=== PATIENT | male | born 1970 | race Caucasian/White ===

== ENCOUNTER → 2021-10-05 | Outpatient (CLI) | payer OTHER ==
[~2021-10-05] MED LIST: BUSPIRONE HCL7.5 MG PO; ELIQUIS2.5 MG PO; HYDROXYZINE HCL25 MG PO; PERCOCET 10-321 EACH PO; REVATIO 20 MG T20 MG PO
== END ==
LOC: KOH-I 10:52
DX: S83.512A Sprain of anterior cruciate ligament of left knee, initial encounter (principal); M22.42 Chondromalacia patellae, left knee
CPT/HCPCS: 73721